=== PATIENT | female | born 1980 | race American Indian/Alaskan Native ===

== ENCOUNTER 2016-12-23 06:46 | Emergency (ER) | payer OTHER ==
[2016-12-23 07:27] VITALS: BP 127/95
--- NOTE | 2016-12-23 08:25 | Emergency Department Report ---
HPI - General Chief Complaint: Earache Time Seen by Provider: 12/23/16 07:43 - HPI HPI: Patient here complaining of bilateral ear pain she said it started with left ear notes both ears. She says she saw her medical doctor and was given prednisone pack and Augmentin without any improvement she said that this was 2 weeks ago. She reports she has some nausea but no vomiting reports feeling feverish but did not take her temperature. She did not take any over-the- counter medication. She said her ear pain is in out of 10 in both ears. Pain feels achy. Denies any drainage from ears. ED Past Medical Hx - Past Medical History Previous Medical History?: No - Surgical History Past Surgical History?: No Additional Surgical History: fibroids removed - Family History Family history: hypertension - Social History Smoking Status: Never Smoker Substance Use Type: None - Medications Home Medications: Home Medications Medication Instructions Recorded Confirmed Last Taken Type Fluticasone [Flonase] 1 spray NS QDAY #1 bottle 12/23/16 Unknown Rx Loratadine [Claritin] 10 mg PO DAILY #10 tablet 12/23/16 Unknown Rx Neomy/Polymyx B/Hc Opth Susp 4 drop OTIC Q8H #1 bottle 12/23/16 Unknown Rx [Cortisporin (OPTH) Susp] ED Review of Systems ROS: Stated complaint: RT EARACHE Other details as noted in HPI Comment: All other systems reviewed and negative Constitutional: fever. denies: chills Eyes: denies: eye pain, vision change ENT: ear pain, congestion. denies: throat pain, dental pain, hearing loss Respiratory: cough. denies: orthopnea, shortness of breath, SOB with exertion, SOB at rest, stridor, wheezing Cardiovascular: denies: chest pain, palpitations, edema, syncope Gastrointestinal: nausea. denies: vomiting, diarrhea Musculoskeletal: denies: back pain, arthralgia Skin: denies: rash Neurological: denies: headache, abnormal gait, vertigo Physical Exam - Physical Exam Vital Signs: Vital Signs 12/23/16 07:24 Temperature 98.4 F Pulse Rate 80 Respiratory 19 Rate Blood Pressure 127/95 O2 Sat by Pulse 100 Oximetry General: This is a 46 [id number] female well-nourished well-developed in no acute distress. Physical Exam: Head: Normocephalic atraumatic Mouth: Moist, no pharyngeal exudate or erythema. Uvula is midline and oral airway is patent. No gingival enlargement or dental tenderness. No facial swelling. No peritonsillar abscesses. Neck: Supple, no C-spine tenderness, no tracheal deviation. Nontender to palpate. no adenopathy Ears: Bilateral TMs congested without erythema .bilateral EAC with redness, swelling and no drainage e Eyes: Bilateral pupils equal and reactive to light, bilateral EOM intact. Bilateral sclera and conjunctiva without injection. Normal accommodation Nose: Mucosa moist, positive congestion with erythema. Positive clear drainage. maxillary and frontal sinus non-tender to palpate. Lungs: Clear to auscultate bilaterally no rhonchi wheezes or rales. Normal work of breathing extremity; No CCE. +2 pulses. No neurovascular compromise Cardiovascular: S1-S2, regular rate rhythm. No murmurs. Skin: clean Dry and intact no rash no lesions Psych: Normal mood and behavior ED Course Vital Signs 12/23/16 07:24 Temperature 98.4 F Pulse Rate 80 Respiratory 19 Rate Blood Pressure 127/95 O2 Sat by Pulse 100 Oximetry - Reevaluation(s) Reevaluation #1: 12/23/16 09:08 stable throughout ED course. ED Medical Decision Making - Medical Decision Making ED course: Patient here with bilateral EAC infection and sinus inflammation. She took a course of antibiotic for 10 days which did not help or ear pain. I explained to patient her diagnosis and treatment plan. She voices understanding of treatment plan and diagnosis. Patient discharged home with prescription for Cortisporin otic, Flonase and Claritin. Critical care attestation.: If time is entered above; I have spent that time in minutes in the direct care of this critically ill patient, excluding procedure time. ED Disposition Clinical Impression: Otalgia of both ears Otitis externa of both ears Qualifiers: Otitis externa type: unspecified type Chronicity: unspecified Qualified Code(s) : H60.93 - Unspecified otitis externa, bilateral Upper respiratory infection Qualifiers: URI type: unspecified URI Qualified Code(s): J06.9 - Acute upper respiratory infection, unspecified Disposition: DISCHARGED TO HOME OR SELFCARE Is pt being admited?: No Does the pt Need Aspirin: No Condition: Stable Instructions: Otitis Externa (ED), Upper Respiratory Infection (ED) Additional Instructions: flush Nostrils out with saline nasal wash. Prescriptions: Fluticasone [Flonase] 1 spray NS QDAY #1 bottle Loratadine [Claritin] 10 mg PO DAILY #10 tablet Neomy/Polymyx B/Hc Opth Susp [Cortisporin (OPTH) Susp] 4 drop OTIC Q8H #1 bottle Referrals: PRIMARY CARE, [Primary Care Provider] - 3-5 Days Forms: Work/School Release Form(ED)
== END 2016-12-23 09:21 | disposition home or self-care (01) ==
LOC: ED 06:46
DX: J06.9 Acute upper respiratory infection, unspecified (principal); H60.93 Unspecified otitis externa, bilateral
CPT/HCPCS: 99282